=== PATIENT | female | born 1950 | race Caucasian/White ===

== ENCOUNTER → 2018-04-25 12:35 | Outpatient (CLI) | payer MEDICARE, OTHER, SELFPAY ==
[2018-04-25 14:04] LABS: Hematocrit 44.9 % (36-46); Mean Corpuscular HGB Conc 33.4 % (30-36); Mean Corpuscular Hemoglobin 30.9 PG (26-34); Mean Corpuscular Volume 92.5 fL (80-100); Platelet Count 272 X10^3/uL (150-400); Red Blood Cell Count 4.85 X10^6/uL (4.0-5.2); White Blood Cell Count 6.8 X10^3/uL (4.5-11.0)
[2018-04-25 14:18] LABS: Hemoglobin A1C% w Est Avg Glu 5.7 % (4.0-6.0)
[2018-04-25 14:21] LABS: Alanine Aminotransferase 25 IU/L (9-52); Albumin Globulin Ratio 1.6 (1.0-2.8); Alkaline Phosphatase 111 U/L (38-126); Aspartate Aminotransferase 28 IU/L (14-36); BUN Creatinine Ratio 31.4 (6-22); Bilirubin Total 0.6 mg/dL (0.2-1.3); Blood Urea Nitrogen 22 mg/dL (7-17); Calcium 9.3 mg/dL (8.4-10.2); Carbon Dioxide 29 mmol/L (22-32); Chloride 104 mmol/L (98-107); Cholesterol 232 mg/dL (140-199); Estimated Glomerular Filt Rate > 60.0 mL/min (>60); Globulin 2.5 g/dL (1.7-4.1); Glucose 101 mg/dL (80-110); HDL Cholesterol 43 mg/dL (40-60); HEMOLYSIS < 15 (0-50); LDL Cholesterol Calculated 150 mg/dL (<100); Potassium 4.6 mmol/L (3.4-5.1); Sodium 143 mmol/L (137-145); Total Protein 6.5 g/dL (6.3-8.2); Triglycerides 197 mg/dL (35-150)
[2018-04-25 14:36] LABS: Vitamin D 25 Hydroxy (D3) 21.6 ng/mL (30.0-100.0)
== END ==
PROVIDERS: PCP Student in an Organized Health Care Education/Training Program; Visit Provider Student in an Organized Health Care Education/Training Program
DX: Z00.00 Encounter for general adult medical examination without abnormal findings (principal); Z00.01 Encounter for general adult medical examination with abnormal findings; E66.01 Morbid (severe) obesity due to excess calories; Z68.41 Body mass index [BMI] 40.0-44.9, adult
CPT/HCPCS: 36415; 77080; 80053; 80061; 82306; 83036; 85027

== ENCOUNTER → 2018-10-16 15:54 | Outpatient (CLI) | payer MEDICARE, OTHER, SELFPAY ==
[2018-10-16 16:02] LABS: RBC Urine None Seen (0-5/HPF)
[2018-10-16 17:12] LABS: Appearance Urine UA CLEAR; Bilirubin Urine UA NEGATIVE (NEGATIVE); Color Urine UA YELLOW; Glucose Urine UA NEGATIVE (Negative); Ketones Urine UA NEGATIVE (NEGATIVE); Leukocyte Esterase Urine UA TRACE (NEGATIVE); Nitrite Urine UA NEGATIVE (Negative); Occult Blood Urine UA NEGATIVE (Negative); Protein Urine UA NEGATIVE (Negative); Specific Gravity Urine UA 1.025 (1.000-1.035); Urobilinogen Urine UA 0.2 E.U./dL (0.2)
[2018-10-16 17:31] LABS: Bacteria Urine Occasional (0-1); Squamous Epithelial Cell Urine 0-1 /HPF (0-5/HPF); WBC Urine 1-5/HPF (0-5/HPF)
[2018-10-16 17:32] LABS: Culture Indicated Urine Specimen Cultured
== END ==
PROVIDERS: PCP Student in an Organized Health Care Education/Training Program; Visit Provider Student in an Organized Health Care Education/Training Program
DX: R30.0 Dysuria (principal)
CPT/HCPCS: 81001; 87077; 87086; 87186

== ENCOUNTER → 2019-10-09 15:53 | Outpatient (CLI) | payer MEDICARE, OTHER, SELFPAY ==
[2019-10-09 17:49] LABS: Appearance Urine UA CLOUDY; Bilirubin Urine UA NEGATIVE (NEGATIVE); Color Urine UA YELLOW; Glucose Urine UA NEGATIVE (Negative); Ketones Urine UA NEGATIVE (NEGATIVE); Leukocyte Esterase Urine UA 3+ (NEGATIVE); Nitrite Urine UA POSITIVE (Negative); Occult Blood Urine UA 2+ (Negative); Protein Urine UA 1+ (Negative); Urobilinogen Urine UA 0.2 E.U./dL (0.2)
[2019-10-09 17:56] LABS: RBC Urine 10-30/HPF (0-5/HPF); WBC Urine >100/HPF (0-5/HPF)
[2019-10-09 17:57] LABS: Bacteria Urine Many (>30); Culture Indicated Urine Specimen Cultured; Mucus Urine 2+ (Negative); Renal Epithelial Cells Urine 1-5/HPF (0-1/HPF); Squamous Epithelial Cell Urine 1-5 /HPF (0-5/HPF); Transitional Epi Cells Urine 1-5/HPF (0-5/HPF)
== END ==
PROVIDERS: PCP Student in an Organized Health Care Education/Training Program; Referring Provider Student in an Organized Health Care Education/Training Program; Visit Provider Student in an Organized Health Care Education/Training Program
DX: R30.0 Dysuria (principal)
CPT/HCPCS: 81001; 87077; 87086; 87186

== ENCOUNTER → 2020-04-13 13:47 | Outpatient (CLI) | payer MEDICARE, OTHER, SELFPAY | PROVIDERS: PCP Student in an Organized Health Care Education/Training Program; Referring Provider Student in an Organized Health Care Education/Training Program; Visit Provider Student in an Organized Health Care Education/Training Program | DX: Z13.820 Encounter for screening for osteoporosis (principal); Z78.0 Asymptomatic menopausal state; Z82.62 Family history of osteoporosis | CPT/HCPCS: 77080 ==

== ENCOUNTER → 2020-04-19 12:17 | Outpatient (CLI) | payer MEDICARE, OTHER, SELFPAY ==
[2020-04-19 12:25] LABS: Bacteria Urine None Seen; RBC Urine None Seen (0-5/HPF)
[2020-04-19 13:00] LABS: BUN Creatinine Ratio 22.5 (6-22); Blood Urea Nitrogen 18 mg/dL (7-17); Calcium 9.3 mg/dL (8.4-10.2); Carbon Dioxide 26 mmol/L (22-32); Chloride 107 mmol/L (98-107); Estimated Glomerular Filt Rate > 60.0 mL/min (>60); Glucose 128 mg/dL (80-110); HEMOLYSIS < 15 (0-50); Potassium 4.2 mmol/L (3.4-5.1); Sodium 139 mmol/L (137-145)
[2020-04-19 15:46] LABS: Vitamin D 25 Hydroxy (D3) 24.7 ng/mL (30.0-100.0)
[2020-04-19 16:38] LABS: Appearance Urine UA CLEAR; Bilirubin Urine UA NEGATIVE (NEGATIVE); Color Urine UA YELLOW; Glucose Urine UA NEGATIVE (Negative); Ketones Urine UA NEGATIVE (NEGATIVE); Leukocyte Esterase Urine UA NEGATIVE (NEGATIVE); Nitrite Urine UA NEGATIVE (Negative); Occult Blood Urine UA NEGATIVE (Negative); Protein Urine UA NEGATIVE (Negative); Specific Gravity Urine UA 1.025 (1.000-1.035); Urobilinogen Urine UA 0.2 E.U./dL (0.2)
[2020-04-19 16:49] LABS: Culture Indicated Urine Cult Not Indicated; Mucus Urine 1+ (Negative); Squamous Epithelial Cell Urine 1-5 /HPF (0-5/HPF); WBC Urine 1-5/HPF (0-5/HPF)
== END ==
PROVIDERS: PCP Student in an Organized Health Care Education/Training Program; Referring Provider Student in an Organized Health Care Education/Training Program; Visit Provider Student in an Organized Health Care Education/Training Program
DX: R35.0 Frequency of micturition (principal); I10 Essential (primary) hypertension; E55.9 Vitamin D deficiency, unspecified
CPT/HCPCS: 36415; 80048; 81001; 82306

== ENCOUNTER → 2020-08-09 09:51 | Outpatient (CLI) | payer MEDICARE, OTHER, SELFPAY ==
[2020-08-09 11:39] LABS: COVID19 -Nasal RAPID Negative (Negative)
== END ==
PROVIDERS: PCP Student in an Organized Health Care Education/Training Program; Visit Provider Physician Assistant
DX: Z01.812 Encounter for preprocedural laboratory examination (principal); Z20.822 Contact with and (suspected) exposure to COVID-19
CPT/HCPCS: 87635; C9803

== ENCOUNTER 2020-08-11 08:18 | Day surgery (SDC) | payer MEDICARE, OTHER, SELFPAY ==
--- NOTE | 2020-08-10 17:18 | PM.PREOP ---
Pre-operative Note COVID-19 COVID-19 status: Negative Interval Note History & Physical reviewed/Exam performed by Physician: Yes Changes to H&P: No
--- NOTE | 2020-08-11 08:29 | P.OP_ITS ---
Operative Date/Time/Diagnoses Date of procedure: 08/11/20 Time of procedure: 09:45 Procedure & Clinicians Procedure: Preoperative diagnoses: 1. Left significant nuclear sclerotic and cortical cataract. 2. 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 3. Sleep apnea 4. Depression 5. Asthma 6. Hypertension 7. Left macular scar with a scotoma. Postoperative diagnoses: 1. Complex Cataract removed by phacoemulsification with placement of posterior chamber intraocular lens. Use of MiLoop and capsular tension ring Procedure:Complex Phacoemulsification with posterior chamber intraocular lens implant Surgeon: Maribeth Price MD Complications: Vitreous strand and zonular weakness 7 to 11 oclock. Limited vitrectomy performed. Specimen: None Implant: [id number]+24.0 Blood loss: None Anesthesia: Retrobulbar with monitored standby Description of procedure: Patient presents with a complaint of decreased vision due to cataract which is affecting activities of daily living. The patient wants surgery to improve vision. She has been undergoing frequent intravitreal injections for exudative macular degeneration in both eyes. This eye has been currently stable with injections and due to the advancing cataract she is unable to see for activities of both reading and distance. She would like to try to enhance her vision as much as possible. She had her last intravitreal injection on July 16 2020. She has no active fluid at this time but there is a chronic macular scar with a scotoma. This surgery is planned to coincide with the best time after her recent intravitreal injection for a lower risk of postoperative leakage. She does have increased risk of complications given the multiple intravitreal injection. She understands that macular degeneration will limit her best potential visual acuity and still have some visual distortion after cataract surgery. Extra risk during the COVID-19 epidemic so also discussed and she wishes to proceed. She has tested negative prior to the procedure. The patient was taken to the operating room and given IV sedation. A retrobulbar block consisting of 6 cc of 2% xylocaine without epinephrine mixed half and half with 0.5% Marcaine with 1 cc of hyaluronidase added is placed between the medial and lateral 1/3 of the inferior orbital rim. The eye is manually massaged for 30 sec, prepped using Betadine solution, and draped in the usual sterile fashion. Temporal approach was made, a 1 mm side-port incision was made 90? from the proposed clear corneal incision position. Phenylephrine 1.5% mixed with 1% xylocaine 0.2 cc was placed into the anterior chamber. Viscoat followed by Healon was then placed. A 2.6 mm clear incision with a 2.6 mm blade was placed. A 360 degree capsulorrhexis style capsulotomy was then performed with a cystitome needle on a Healon. There was a 1 mm area of endothelial decimated irritation at the 10 o'clock position which did not extend during the surgery. Hydrodelineation and hydrodissection were performed. The phacoemulsification unit is introduced, and sculpting was used to groove the central lens. It was much denser than originally perceived. I noted that there was weakness to the zonules immediately and the inferior 8-11 clock hours and immediately placed Viscoat viscoelastic without removing the instruments from the eye. To prevent any further need to groove a MiLloop was then opened and expect with an inspec [place], inserted under the capsulorrhexis place past midline and then placed into the central nucleus with the lens then dissected into 2 halves. Viscoelastic was replaced and the lens him a nuclear were then removed removed in chopping mode at the iris plane. To maintain capsule integrity a pre-loaded capsular tension ring of 12 mm was inspected. Retracted into its izaguirre and then opened into the posterior chamber and released. Epi nucleus is removed with epinuclear mode and irrigation aspiration was used to remove the peripheral cortex. There was a small strand of vitreous noted at the 6 o'clock position which was placed back into position using extra viscoelastic. Phone consultation did take place with Dr. Remi Marcus who said that to proceed with the current surgical plan. All nucleus and most cortex was removed. There was a small amount of cortex at the 8 o'clock position left into position for after the intra-ocular lens insertion. The capsulorrhexis and posterior capsule were both intact. The intraocular lens is selected, inspected, power confirmed, and placed in the posterior chamber and opened and it was well centered. Try essence a small amount was placed into the anterior chamber to check for vitreous. A dry vitrectomy was performed on the vitreous strand. A 10 0 nylon suture was placed through the wound and tied after viscoelastic was gently irrigated. It was difficult to bury the knot. The wound was tested for leaks, there was none and it was left sutured with only 1 stitch. Miostat was placed into the anterior chamber and the pupil was round. Was gently irrigated through the side port. Vigamox 0.1 cc was placed into the anterior chamber. A drop of antibiotic and was placed and the eye was patched and shielded. The patient was stable and returned to the recovery room in excellent condition. Patient tolerated the procedure very well. She will begin eyedrops this evening and postoperative consultation with Dr. Macrus will occur as needed. She understands that there may be need for further procedures. Dictated by: Maribeth Price MD Copy to: [facility] Same procedure as scheduled: No
[2020-08-11 08:45] VITALS: BP 133/69; PULSE 79; RESP 18; TEMP 36.6; O2SAT 95; BMI 44.8
[2020-08-11] MEDS: PROPARACAINE 0.5% OPHTH SOL 2 DROPS EYE-OP (08:56)
[2020-08-11] MEDS: CATARACT EYE COMPOUND (10 DROPS/SYRINGE) 3 DROPS EYE-OP (09:01)
[2020-08-11] MEDS: PHENYLEPHRINE/LIDOCAINE VIAL (OR) 0.2 ML EYE-OP (10:25)
[2020-08-11] MEDS: MOXIFLOXACIN INJ 5 MG/ML VIAL EYE-OP (10:25)
[2020-08-11] MEDS: HYALURONATE SODIUM 10 MG/ML SYRINGE INJ (10:26)
[2020-08-11] MEDS: CHONDROIDTIN/SOD HYALURONATE 1.05 ML SYRINGE INTRAOCULA (10:26)
[2020-08-11] MEDS: BALANCED SALT IRRIG SOLN NO.2 500 ML, EPINEPHrine 1 MG IRR (10:27)
[2020-08-11] MEDS: LIDOCAINE 2% 4 ML, BUPIVACAINE 0.5% (PF) 4 ML, HYALURONIDASE 150 UNIT INJ (10:27)
[2020-08-11] MEDS: ERYTHROMYCIN OPHTH 1 GM OINT 1 APPLIC EYE-LEFT (10:28)
[2020-08-11] MEDS: TRIAMCINOLONE (PF) 40 MG/ML VIAL IM (11:26)
[2020-08-11] MEDS: ACETYLCHOLINE 1:1000 OPHTH 2 ML 2 DROP INTRAOCULA (11:45)
[2020-08-11 11:59] VITALS: BP 144/77; PULSE 69; RESP 16; TEMP 36.7; O2SAT 97
[2020-08-11 12:19] VITALS: BP 132/74; PULSE 69; RESP 16; TEMP 36.7; O2SAT 98
--- NOTE | 2020-08-11 15:00 | SUR.PHASEII ---
Late entry: Pt ready to go, son called, pt dressed and left unit in stable condition.
== END 2020-08-11 12:30 | disposition home or self-care (01) ==
LOC: OR 08:22
PROVIDERS: PCP Student in an Organized Health Care Education/Training Program; Referring Provider Ophthalmology; Visit Provider Ophthalmology
PROC: (CPT 66982; principal; 2020-08-11 09:45)
DX: H25.812 Combined forms of age-related cataract, left eye (principal); H35.3230 Exudative age-related macular degeneration, bilateral, stage unspecified; H53.459 Other localized visual field defect, unspecified eye; G47.30 Sleep apnea, unspecified; F32.9 Major depressive disorder, single episode, unspecified; J45.909 Unspecified asthma, uncomplicated; I10 Essential (primary) hypertension
CPT/HCPCS: 66982; J0171; J3300; J3301; J3470

== ENCOUNTER → 2020-10-11 14:09 | Outpatient (CLI) | payer MEDICARE, OTHER, SELFPAY | PROVIDERS: PCP Student in an Organized Health Care Education/Training Program; Visit Provider Physician Assistant | DX: N30.01 Acute cystitis with hematuria (principal) | CPT/HCPCS: 87077; 87086; 87186 ==

== ENCOUNTER → 2020-10-25 14:02 | Outpatient (CLI) | payer MEDICARE, OTHER, SELFPAY ==
[2020-10-25 15:59] LABS: COVID19 -Nasal RAPID Negative (Negative)
== END ==
PROVIDERS: PCP Student in an Organized Health Care Education/Training Program; Visit Provider Student in an Organized Health Care Education/Training Program
DX: Z20.822 Contact with and (suspected) exposure to COVID-19 (principal)
CPT/HCPCS: 87635; C9803

== ENCOUNTER 2020-10-27 07:22 | Day surgery (SDC) | payer MEDICARE, OTHER, SELFPAY ==
--- NOTE | 2020-10-26 19:13 | PM.PREOP ---
Pre-operative Note COVID-19 COVID-19 status: Negative Interval Note History & Physical reviewed/Exam performed by Physician: Yes Changes to H&P: No
--- NOTE | 2020-10-27 07:30 | P.OP_ITS ---
Operative Date/Time/Diagnoses Date of procedure: 10/27/20 Time of procedure: 08:45 Procedure & Clinicians Procedure: Preoperative diagnoses: 1. Right cataract surgery possible with use of capsular dye. 2. Mature or advanced nuclear sclerotic and cortical cataract with poor visibility of the anterior capsule increasing surgical risks of complications. 3. Exudative macular degeneration with ongoing intravitreal injections. 4. Astigmatism which she elects to correct the toric intraocular lens. 5. Sleep apnea 6. Depression 7. Hypertension 8. Asthma Postoperative diagnoses: 1. Phacoemulsification with posterior chamber interocular lens toric implant. 2. Placement of a toric posterior chamber intraocular lens implant. Surgeon: Maribeth Price MD Complications: none Specimen: None Implant: [id number]+24.0 [place] 075. Blood loss: None Anesthesia: Retrobulbar with monitored standby. Description of procedure: Dictated by: Maribeth Price MD Post operative diagnoses: 1. Right cataract removed with phacoemulsification . 2. Placement of a toric posterior chamber intraocular lens. Procedure: Phacoemulsification with posterior chamber intraocular lens implant Surgeon: Maribeth Price MD Blood loss: None Anesthesia: Retrobulbar with monitored standby Description of procedure: Patient has presented with decreased vision due to cataract which is affecting activities of daily living both distance and near. She has high risk due to advanced cataract after intravitreal injections which can cause zonular instability. She has had cataract surgery in her left eye and zonular weakness was present The patient wants surgery to improve vision. She is stable having undergone a an intravitreal injection last few weeks and wishes to proceed with surgery at this time. She understands extra yes during the Covid 19 epidemic in his tested negative for active virus prior to the procedure. The patient was taken to the operating room and indelible ink peterson were placed at the 90 and 180 degree meridian after placing topical proparacaine. She was then placed on the operating room table and given IV sedation. A retrobulbar block consisting of 6 cc of 2% xylocaine without epinephrine mixed half and half with 0.5% Marcaine with 1 cc of hyaluronidase added is placed between the medial and lateral 1/3 of the inferior orbital rim. The eye is manually massaged for 30 sec, prepped using Betadine solution, and draped in the usual sterile fashion. Temporal approach was made, a 1 mm side-port incision was performed 90 degrees from the planned corneal wound. Phenylephrine 1.5% mixed with 1% xylocaine 0.2 cc was placed into the anterior chamber. No capsular dye was needed . ]Viscoat followed by Healon was then placed. A 2.6 mm clear incision with a 2.6 mm blade was placed. A 360 degree capsulorrhexis style capsulotomy was then performed with a cystitome needle on a Healon. Hydrodelineation and hydrodissection were performed. The phacoemulsification unit is introduced, and sculpting used to groove the central lens. It is then removed in chopping mode. Epi nucleus is removed with epinuclear mode and irrigation aspiration was used to remove the peripheral cortex. The posterior capsule is polished. The intraocular lens is selected, inspected, power confirmed, and placed in the posterior chamber at the desired meridian of 075?. All zonules held intact. The pupil was not constricted with Miostat. The wound was stromally hydrated and tested for leaks, there was none and was left sutureless. Vigamox 0.1 cc was placed into the anterior chamber. Kenalog 0.2 cc was placed in the superior subconjunctival space. A drop of antibiotic and was placed and the eye was patched and shielded. The patient was stable and returned to the recovery room in excellent condition. Dictated by: Maribeth Price MD Copy to: [facility] Same procedure as scheduled: Yes
[2020-10-27] MEDS: PROPARACAINE 0.5% OPHTH SOL 2 DROPS EYE-OP (08:04)
[2020-10-27] MEDS: CATARACT EYE COMPOUND (10 DROPS/SYRINGE) 3 DROPS EYE-OP (08:05)
[2020-10-27 08:11] VITALS: BP 111/65; PULSE 78; RESP 16; TEMP 37.2; O2SAT 95
[2020-10-27] MEDS: LIDOCAINE 2% 4 ML, BUPIVACAINE 0.5% (PF) 4 ML, HYALURONIDASE 150 UNIT INJ (09:16)
[2020-10-27] MEDS: TRIAMCINOLONE 50 MG/5 ML VIAL INJ (09:18)
[2020-10-27] MEDS: PHENYLEPHRINE/LIDOCAINE VIAL (OR) 0.2 ML EYE-OP (09:19)
[2020-10-27] MEDS: ERYTHROMYCIN OPHTH 1 GM OINT 1 APPLIC EYE-RIGHT (09:19)
[2020-10-27] MEDS: MOXIFLOXACIN INJ 4 MG/0.8 ML VIAL 0.5 MG EYE-OP (09:19)
[2020-10-27] MEDS: BALANCED SALT IRRIG SOLN NO.2 500 ML, EPINEPHrine 1 MG IRR (09:20)
[2020-10-27] MEDS: HYALURONATE SODIUM 10 MG/ML SYRINGE INJ (09:21)
[2020-10-27] MEDS: CHONDROIDTIN/SOD HYALURONATE 1.05 ML SYRINGE INTRAOCULA (09:21)
[2020-10-27 09:55] VITALS: BP 150/73; PULSE 64; RESP 16; TEMP 36.3; O2SAT 95
[2020-10-27 10:10] VITALS: BP 153/79; PULSE 74; RESP 15; O2SAT 94
--- NOTE | 2020-10-27 10:25 | SUR.PHASEII ---
1010 late entry ambulated to the bathroom to dress, stable on feet. Voided. Surgical site cdi
== END 2020-10-27 10:12 | disposition home or self-care (01) ==
LOC: OR 07:24
PROVIDERS: PCP Student in an Organized Health Care Education/Training Program; Referring Provider Student in an Organized Health Care Education/Training Program; Visit Provider Ophthalmology
PROC: (CPT 66984; principal; 2020-10-27 08:45)
DX: H25.811 Combined forms of age-related cataract, right eye (principal); H35.3231 Exudative age-related macular degeneration, bilateral, with active choroidal neovascularization; I10 Essential (primary) hypertension; J45.909 Unspecified asthma, uncomplicated; G47.33 Obstructive sleep apnea (adult) (pediatric); F32.9 Major depressive disorder, single episode, unspecified
CPT/HCPCS: 66984; J0171; J2704; J3301; J3470; V2787

== ENCOUNTER 2021-02-23 07:47 | Observation (INO) | payer MEDICARE, OTHER, SELFPAY ==
[2021-02-23] VITALS (22 sets, daily range): BP systolic 89–185; BP diastolic 46–101; PULSE 67–109; RESP 12–22; TEMP 35.9–36.6; O2SAT 89–100; BMI 43.9
--- NOTE | 2021-02-23 | PATH_ITS ---
[facility] Accession Number: [id number] . 01 Material submitted: . gallbladder - GALLBLADDER AND STONES . 02 Diagnosis: Gallbladder, Cholecystectomy: Chronic cholecystitis with cholelithiasis. Negative for dysplasia and malignancy. MRV 02/28/2021 1213 Local . 02 Electronically signed: . Ana Roman MD, Pathologist NPI- [id number] . 01 Gross description: . The specimen is received in formalin, labeled gallbladder and stone and consists of a 10.0 x 3.5 x 3.2 cm previously disrupted gallbladder with a 0.3 cm in diameter cystic duct. The serosa is levi-pink and smooth. Opening reveals minimal green viscous bile and multiple levi-green multifaceted choleliths and cholelith fragments ranging from 0.1-1.5 cm. The mucosa is levi-green and velvety to trabeculated, and the wall thickness measures 0.3 cm. Plaster Whittler sections are submitted, to include the en face cystic duct margin (blue), in cassette A1. (EA:[id number]) /MRV 02/25/2021 0954 Local . 02 Pathologist provided ICD-10: K80.60 . 02 CPT . 408565 Performed at: 01 [facility] [address], [place], [place] [id number] MD Jose G Landa MD Phone: [phone] Performed at: 02 [facility] [address] [place], [place] [id number] MD Ana Roman MD Phone: [phone]
--- NOTE | 2021-02-23 08:03 | ED_ITS ---
HPI - General Adult General Chief complaint: Abdominal Pain Stated complaint: severe right upper quad pain/n & v x1day Time Seen by Provider: 02/23/21 07:56 History of Present Illness HPI narrative: Patient is a 70-year-old female. Has known cholelithiasis. Has had off and on discomfort for the past several years. She stated that yesterday she ate some fried chicken and just prior to midnight last night started to have right upper quadrant abdominal pain. Some nausea but no vomiting. Has had some diarrhea. Has not tried anything for the symptoms. Feels just like her prior issues with gallbladder however it has persisted until this morning. No fevers. Has had a tubal ligation and a laparoscopy in the past. Also has a history of diverticulitis. No chest pain. No shortness of breath. Related Data Home Medications Medication Instructions Recorded Confirmed fluticasone propionate 50 1 spray INTRANASAL DAILY PRN 08/11/20 10/27/20 mcg/actuation nasal spray,suspension vit C 250 mg-vit E 90 mg-zinc 40 1 tab PO DAILY 08/11/20 10/27/20 mg-copper 1 [id number] capsule (PreserVision AREDS-2) Previous Rx's Medication Instructions Recorded albuterol sulfate 90 mcg/actuation 1 puff INHALATION Q4-6H PRN #18 06/26/19 aerosol inhaler gram naproxen 500 mg tablet 500 mg PO BID #180 tab 03/30/20 losartan 50 mg tablet 50 mg PO DAILY #90 tab 07/12/20 hydrochlorothiazide 12.5 mg tablet 12.5 mg PO DAILY #90 tab 07/16/20 fluticasone 250 mcg-salmeterol 50 1 inh INHALATION BID #60 each 09/20/20 mcg/dose blistr powdr for inhalation duloxetine 30 mg capsule,delayed 30 mg PO DAILY #90 cap 10/25/20 release (Cymbalta) zolpidem 5 mg tablet 5 mg PO BEDTIME PRN #10 tab 10/25/20 Allergies Allergy/AdvReac Type Severity Reaction Status Date / Time FLORINDA Inhibitors AdvReac Intermediate Cough Verified 02/23/21 11:04 Rpimuwz-Nsf-Ucd Reductase AdvReac Intermediate leg cramps Verified 02/23/21 11:04 Inhibitor Iodinated Contrast Media AdvReac Mild hay fever Verified 02/23/21 11:04 type symptoms Review of Systems Constitutional Constitutional: Denies fever(s) Cardiovascular Cardiovascular: Reports as per HPI Respiratory Respiratory: Reports system reviewed and no additional complaints, except as documented Gastrointestinal Gastrointestinal: Reports as per HPI Genitourinary Genitourinary: Reports system reviewed and no additional complaints, except as documented Musculoskeletal Musculoskeletal: Reports system reviewed and no additional complaints, except as documented Integumentary/Breasts Skin/Breast: Reports system reviewed and no additional complaints, except as documented Neurologic Neurologic: Reports system reviewed and no additional complaints, except as documented Hematologic/Lymphatic On Anticoagulants: No Allergic/Immunologic Allergic/Immunologic: Reports system reviewed and no additional complaints, except as documented Patient History Medical History Asthma 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 Chickenpox Chronic back pain Chronic cough Depression Fibroids (~2001) Fractures Gall stones (~2017) HTN (hypertension) (~2003) Hyperlipidemia Measles MRSA carrier Mumps Osteoarthritis Osteopenia Rubella UTI (urinary tract infection) Surgical History (Updated 04/15/18 @ 16:01 by Kassandra Marte) H/O bilateral breast reduction surgery H/O bilateral hip replacements History of bilateral knee replacement History of replacement of both shoulder joints Family History (Updated 04/15/18 @ 16:08 by Kassandra Marte) Father Hyperlipidemia Hypertension Stroke Mother Cancer Diabetes mellitus Hyperlipidemia Hypertension Depression Heart disease Brother No problems noted. Brother No problems noted. Sister Hypertension Sister Diabetes mellitus Cancer Sister No problems noted. Sister Cancer Sister No problems noted. Sister No problems noted. Sister No problems noted. Social History household members: family Smoking Status: Never smoker alcohol intake: current substance use type: does not use Smoking Status: Never smoker alcohol intake frequency: a few times a month Substance Use Type: does not use and other Exam Initial Vital Signs Initial Vital Signs: Vital Signs Temperature 97.1 F L 02/23/21 07:56 Pulse Rate 82 02/23/21 07:56 Respiratory Rate 16 02/23/21 07:56 Blood Pressure 185/82 H 02/23/21 07:56 Pulse Oximetry 99 02/23/21 07:56 Const General: cooperative and comfortable HENMT Head: normal to inspection and normocephalic Resp Effort & Inspection: normal respiratory effort Cardio Rate: regular rate GI Inspection: non-distended Palpation: soft, No guarding and tender (Right upper quadrant) Back/Spine/Pelvis Back: No CVA tenderness Skin General: no rashes or lesions noted Neuro General: patient alert, patient awake and moves all extremities Extrem General: normal to inspection and capillary refill normal Psych Appearance: grossly normal and well kempt Scores GCS [place] coma scale eye opening: Spontaneous [place] coma scale verbal response: Orientated Laurie coma scale motor response: Obey commands [place] coma scale total score: 15 Course Orders Ordered: ED Orders 02/23/21 08:03 US abdomen limited Stat EKG-12 Lead Stat 02/23/21 08:15 Complete Blood Count AUTO DIFF Stat Comprehensive Metabolic Panel Stat Lipase Stat 02/23/21 10:26 COVID19 - ADMIT (PICTURE COPYIST swab/PCR) Stat Sodium Chloride (Normal Saline 0.9%) 1,000 mls @ 125 mls/hr IV CONT DOTTIE Last Infusion: 02/23/21 11:07 Dose: 0 mls/hr Documented by: Admin: 02/23/21 08:18 Dose: 125 mls/hr Documented by: PALLAVI Discontinued Medications Ketorolac Tromethamine (Ketorolac 30 Mg/Ml Vial) 30 mg IV NOW ONE Stop: 02/23/21 08:02 Last Admin: 02/23/21 08:18 Dose: 30 mg Documented by: PALLAVI Ondansetron HCl (Ondansetron 4 Mg/2 Ml Inj) 4 mg IV NOW ONE Stop: 02/23/21 08:02 Last Admin: 02/23/21 08:18 Dose: 4 mg Documented by: PALLAVI Vital Signs Vital signs: Vital Signs - 8 hr 02/23/21 07:56 02/23/21 07:57 02/23/21 08:00 Temperature 97.1 F L Pulse Rate 82 76 77 Respiratory Rate 16 Blood Pressure 185/82 H Pulse Oximetry 99 94 96 02/23/21 08:30 02/23/21 09:00 02/23/21 09:30 Temperature Pulse Rate 75 76 74 Respiratory Rate Blood Pressure Pulse Oximetry 96 97 98 02/23/21 09:56 02/23/21 10:00 02/23/21 10:05 Temperature Pulse Rate 85 79 77 Respiratory Rate 18 Blood Pressure 185/82 H Pulse Oximetry 92 94 95 02/23/21 10:06 Temperature Pulse Rate Respiratory Rate Blood Pressure 182/73 H Pulse Oximetry Medical Decision Making Medical Records Medical records reviewed: Yes I reviewed the patient's medical records. Lab Data Lab results reviewed: Yes I reviewed the patient's lab results. Result diagrams: 02/23/21 08:15 02/23/21 08:15 Labs: Lab Results 02/23/21 02/23/21 02/23/21 Range/Units 08:15 08:15 10:26 WBC 8.9 (4.5-11.0) X10^3/uL RBC 4.68 (4.0-5.2) X10^6/uL Hgb 14.5 (12.0-16.0) g/dL Hct 43.7 (36-46) % MCV 93.4 (80-100) fL MCH 30.9 (26-34) PG MCHC 33.0 (30-36) % RDW 13.6 (11.6-14.8) % Plt Count 252 (150-400) X10^3/uL Neut % (Auto) 80.3 H (50-75) % Lymph % (Auto) 10.6 L (25-40) % [place] % (Auto) 7.3 (3-14) % Eos % (Auto) 1.6 L (2-4) % Baso % (Auto) 0.2 (0-2) % Neut # (Auto) 7200 H (2954-9061) /uL Lymph # (Auto) 1000 L (5453-9807) /uL [place] # (Auto) 700 (0-900) /uL Eos # (Auto) 100 (0-450) /uL Baso # (Auto) 0 (0-100) /uL Sodium 140 (137-145) mmol/L Potassium 3.9 (3.4-5.1) mmol/L Chloride 105 (98-107) mmol/L Carbon Dioxide 30 (22-32) mmol/L BUN 32 H (7-17) mg/dL Creatinine 0.88 (0.52-1.04) mg/dL Estimated GFR > 60.0 (>60) mL/min BUN/Creatinine Ratio 36.4 H (6-22) Glucose 156 H (80-110) mg/dL Calcium 9.7 (8.4-10.2) mg/dL Total Bilirubin 0.4 (0.2-1.3) mg/dL AST 24 (14-36) IU/L ALT 19 (<35) IU/L Alkaline Phosphatase 98 (38-126) U/L Total Protein 6.9 (6.3-8.2) g/dL Albumin 4.0 (3.5-5.0) g/dL Globulin 2.9 (1.7-4.1) g/dL Albumin/Globulin Ratio 1.4 (1.0-2.8) Lipase 17 L (23-300) U/L SARS-CoV-2 (PCR) Negative (Negative) Imaging Data US - abdomen: Radiologist's Impression: [address] [id number] ReportSigned Patient: Raúl Taylor EMR#: [id number]: [id number]:[id number]/Sex: 70 / FDate of Service: 02/23/21Loc: EDAccession Number: [id number] Procedure: US abdomen limited Ordering Provider: Carroll Strong D.O. PROCEDURE: US ABDOMEN LIMITED INDICATIONS: RUQ PAIN TECHNIQUE: Real-time focused scanning was performed of the abdomen, with image documentation. COMPARISON: None. FINDINGS: The liver is slightly enlarged at 20.1 cm craniocaudad and is incre ased in echotexture consistent with diffuse fatty infiltration. The gallbladder contains stones, nearly stone-filled, with gallbladder wall thickening up to 4.9 mm but no adjacent free fluid. Tenderness during sonographic palpation of the gallbladder is present. The common bile duct is normal in caliber at 5.1 mm. No pancreatic abnormality is seen. IMPRESSION: Stone filled gallbladder, abnormally wall thickened with focal tenderness during sonographic palpation. Early acute cholecystitis likely is present. Biliary distension is not currently seen. Dictated by: Ace Sesay M.D. on 02/23/2021 at 9:47 Approved by: Ace Sesay M.D. on 02/23/2021 at 9:49 ECG Data Attestation: I personally reviewed and interpreted this ECG as follows: Interpretation: Sinus rhythm Ventricular rate is 71 Normal axis Normal QRS Normal QTC No ST T wave changes MDM Narrative Medical decision making narrative: Patient has normal LFTs and lipase. Does have right upper quadrant pain. Does have cholelithiasis with findings consistent with acute cholecystitis. Pain is somewhat improved with Toradol. I do suspect that this is the cause of her symptoms. Discussed the case with Dr. Gurrola on-call for General surgery who will admit for further evaluation and treatment. I did discuss this with the patient as well. She expressed understanding. Discharge Plan Departure Patient Disposition: Admitted as Observation Clinical Impression: Acute cholecystitis Admit Date/Time: 02/23/21 10:53 Admit Provider: Javy Gurrola
[2021-02-23] MEDS: KETOROLAC 30 MG/ML VIAL IV (08:18)
[2021-02-23] MEDS: SODIUM CHLORIDE 0.9% 1,000 ML 125 ML IV (08:18)
[2021-02-23] MEDS: ONDANSETRON 4 MG/2 ML INJ IV ×2 (08:18→22:17)
[2021-02-23 08:25] LABS: Add Manual Diff / Slide Review NO; Basophils Absolute Auto 0 /uL (0-100); Basophils Percent Auto 0.2 % (0-2); Eosinophils Absolute Auto 100 /uL (0-450); Eosinophils Percent Auto 1.6 % (2-4); Hematocrit 43.7 % (36-46); Hemoglobin 14.5 g/dL (12.0-16.0); Lymphocytes Absolute Auto 1000 /uL (1100-4500); Lymphocytes Percent Auto 10.6 % (25-40); Mean Corpuscular Hemoglobin 30.9 PG (26-34); Mean Corpuscular Volume 93.4 fL (80-100); Monocytes Absolute Auto 700 /uL (0-900); Monocytes Percent Auto 7.3 % (3-14); Neutrophils Absolute Auto 7200 /uL (1500-7000); Neutrophils Percent Auto 80.3 % (50-75); Platelet Count 252 X10^3/uL (150-400); Red Blood Cell Count 4.68 X10^6/uL (4.0-5.2); Red Cell Distribution Width 13.6 % (11.6-14.8); White Blood Cell Count 8.9 X10^3/uL (4.5-11.0)
[2021-02-23 08:34] LABS: Alanine Aminotransferase 19 IU/L (<35); Albumin Globulin Ratio 1.4 (1.0-2.8); Alkaline Phosphatase 98 U/L (38-126); Aspartate Aminotransferase 24 IU/L (14-36); BUN Creatinine Ratio 36.4 (6-22); Bilirubin Total 0.4 mg/dL (0.2-1.3); Blood Urea Nitrogen 32 mg/dL (7-17); Calcium 9.7 mg/dL (8.4-10.2); Carbon Dioxide 30 mmol/L (22-32); Chloride 105 mmol/L (98-107); Estimated Glomerular Filt Rate > 60.0 mL/min (>60); Globulin 2.9 g/dL (1.7-4.1); Glucose 156 mg/dL (80-110); HEMOLYSIS < 15 (0-50); Lipase 17 U/L (23-300); Potassium 3.9 mmol/L (3.4-5.1); Sodium 140 mmol/L (137-145); Total Protein 6.9 g/dL (6.3-8.2)
[2021-02-23 11:34] LABS: COVID19 - ADMIT (NP swab/PCR) Negative (Negative)
[2021-02-23] MEDS: LACTATED RINGERS 1,000 ML 125 ML IV (11:57)
[2021-02-23 12:12] LABS: RBC Urine 0-1/HPF (0-5/HPF); WBC Urine 1-5/HPF (0-5/HPF)
[2021-02-23 12:13] LABS: Bacteria Urine Many (>30); Squamous Epithelial Cell Urine 0-1 /HPF (0-5/HPF)
[2021-02-23] MEDS: ENOXAPARIN 40 MG/0.4 ML SYRINGE SUBCUT (14:03)
--- NOTE | 2021-02-23 14:31 | PM.HP.1 ---
History of Present Illness History of Present Illness Date Patient Seen: 02/23/21 Time Patient Seen: 14:32 Date of Onset of Symptoms: 02/23/21 Chief complaint: severe right upper quad pain/n & v x1day Narrative: Around midnight patient developed severe right upper quadrant pain. She has had this in the past but never this severe. About 5 years ago she had a study that showed gallstones. No history of jaundice. Anorexic. Last p.o. was early this morning about 1:00 a.m. only abdominal operation was laparoscopy for what sounds like diverticulitis. She did not have a resection.. Patient History Medical History Asthma 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 Chickenpox Chronic back pain Chronic cough Depression Fibroids (~2001) Fractures Gall stones (~2017) HTN (hypertension) (~2003) Hyperlipidemia Measles MRSA carrier Mumps Osteoarthritis Osteopenia Rubella UTI (urinary tract infection) Surgical History H/O bilateral breast reduction surgery H/O bilateral hip replacements History of bilateral knee replacement History of replacement of both shoulder joints Family & Social History Family History Father Hyperlipidemia Hypertension Stroke Mother Cancer Diabetes mellitus Hyperlipidemia Hypertension Depression Heart disease Brother No problems noted. Brother No problems noted. Sister Hypertension Sister Diabetes mellitus Cancer Sister No problems noted. Sister Cancer Sister No problems noted. Sister No problems noted. Sister No problems noted. Social History: household members family Safety & Behavioral: Feels Safe in Current Yes Environment Been Physically Hurt or No Threatened By a Person Tobacco & Substance use: Smoking Status Never smoker alcohol intake current alcohol intake frequency a few times a month Substance Use Type other,does not use Meds Home Medications and Allergies Home Medications Medication Instructions Recorded Confirmed Type albuterol sulfate 90 mcg/actuation 1 puff INHALATION Q4-6H PRN #18 06/26/19 02/23/21 Rx aerosol inhaler gram naproxen 500 mg tablet 500 mg PO BID #180 tab 03/30/20 02/23/21 Rx losartan 50 mg tablet 50 mg PO DAILY #90 tab 07/12/20 02/23/21 Rx hydrochlorothiazide 12.5 mg tablet 12.5 mg PO DAILY #90 tab 07/16/20 02/23/21 Rx fluticasone propionate 50 1 spray INTRANASAL DAILY PRN 08/11/20 02/23/21 History mcg/actuation nasal spray,suspension vit C 250 mg-vit E 90 mg-zinc 40 1 tab PO DAILY 08/11/20 02/23/21 History mg-copper 1 [id number] capsule (PreserVision AREDS-2) fluticasone 250 mcg-salmeterol 50 1 inh INHALATION BID #60 each 09/20/20 02/23/21 Rx mcg/dose blistr powdr for inhalation duloxetine 30 mg capsule,delayed 30 mg PO DAILY #90 cap 10/25/20 02/23/21 Rx release (Cymbalta) zolpidem 5 mg tablet 5 mg PO BEDTIME PRN #10 tab 10/25/20 02/23/21 Rx Allergies Allergy/AdvReac Type Severity Reaction Status Date / Time FLORINDA Inhibitors AdvReac Intermediate Cough Verified 02/23/21 11:04 Tpwtlyp-Scr-Pij Reductase AdvReac Intermediate leg cramps Verified 02/23/21 11:04 Inhibitor Iodinated Contrast Media AdvReac Mild hay fever Verified 02/23/21 11:04 type symptoms Review of Systems Review of Systems Narrative: 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 No double vision or pain arise. No earache sore throats no tooth aches. No cough or cold. She suffers from asthma and has never smoked. She uses inhalers for. Patient denies any heart problems any shortness of breath is related to her asthma. No cough or sputum production at this time. No black or bloody bowel movements. She had a colonoscopy after hurt attack of diverticulitis and that was in 2016 and she was told it was clear. No blood in her urine or kidney stones that she does get frequent UTIs. Multiple surgeries on both knees hips and shoulders. No seizures or blackouts Exam Vital Signs (past 8 hours): - 02/23/21 07:56 02/23/21 07:57 02/23/21 08:00 Temperature 97.1 F L Pulse Rate 82 76 77 Respiratory Rate 16 Blood Pressure 185/82 H Pulse Oximetry 99 94 96 02/23/21 08:30 02/23/21 09:00 02/23/21 09:30 Temperature Pulse Rate 75 76 74 Respiratory Rate Blood Pressure Pulse Oximetry 96 97 98 02/23/21 09:56 02/23/21 10:00 02/23/21 10:05 Temperature Pulse Rate 85 79 77 Respiratory Rate 18 Blood Pressure 185/82 H Pulse Oximetry 92 94 95 02/23/21 10:06 Temperature Pulse Rate Respiratory Rate Blood Pressure 182/73 H Pulse Oximetry Oxygen Delivery Method Room Air Narrative Exam Narrative: Very pleasant cooperative woman in no apparent distress at this time. Her pain has subsided. Eyes are nonicteric. Lungs are clear to auscultation no rales or rhonchi. Harsh breath sounds however. Heart regular rate and rhythm without murmur gallop. Abdomen is protuberant soft. Scars from her laparoscopy or barely visible. There are no hernias appreciated on her abdominal wall. No tenderness at this time. Liver and spleen are not obviously enlarged. No palpable masses and no guarding. Speech rate and content are appropriate. Affect is appropriate. Objective Labs Result Diagrams: 02/23/21 08:15 02/23/21 08:15 Labs: Laboratory Results - last 24 hr 02/23/21 02/23/21 02/23/21 08:15 08:15 10:26 WBC 8.9 RBC 4.68 Hgb 14.5 Hct 43.7 MCV 93.4 MCH 30.9 MCHC 33.0 RDW 13.6 Plt Count 252 Neut % (Auto) 80.3 H Lymph % (Auto) 10.6 L [place] % (Auto) 7.3 Eos % (Auto) 1.6 L Baso % (Auto) 0.2 Neut # (Auto) 7200 H Lymph # (Auto) 1000 L [place] # (Auto) 700 Eos # (Auto) 100 Baso # (Auto) 0 Sodium 140 Potassium 3.9 Chloride 105 Carbon Dioxide 30 BUN 32 H Creatinine 0.88 Estimated GFR > 60.0 BUN/Creatinine Ratio 36.4 H Glucose 156 H Calcium 9.7 Total Bilirubin 0.4 AST 24 ALT 19 Alkaline Phosphatase 98 Total Protein 6.9 Albumin 4.0 Globulin 2.9 Albumin/Globulin Ratio 1.4 Lipase 17 L Urine RBC Urine WBC Ur Squamous Epith Cells Urine Bacteria Ur Culture Indicated? SARS-CoV-2 (PCR) Negative 02/23/21 11:31 WBC RBC Hgb Hct MCV MCH MCHC RDW Plt Count Neut % (Auto) Lymph % (Auto) [place] % (Auto) Eos % (Auto) Baso % (Auto) Neut # (Auto) Lymph # (Auto) [place] # (Auto) Eos # (Auto) Baso # (Auto) Sodium Potassium Chloride Carbon Dioxide BUN Creatinine Estimated GFR BUN/Creatinine Ratio Glucose Calcium Total Bilirubin AST ALT Alkaline Phosphatase Total Protein Albumin Globulin Albumin/Globulin Ratio Lipase Urine RBC 0-1/hpf Urine WBC 1-5/hpf Ur Squamous Epith Cells 0-1 /hpf Urine Bacteria Many (>30) H Ur Culture Indicated? Culture not indicate SARS-CoV-2 (PCR) Assessment & Plan Assessment and plan (1) Acute cholecystitis: Status: Acute (2) Hypertension: Qualifiers: Hypertension type: essential hypertension Qualified Code(s): I10 - Essential (primary) hypertension Status: Chronic (3) Morbid obesity: Status: Chronic Assessment & Plan narrative: Patient with cholelithiasis and abdominal pain. Liver function tests and labs are within normal limits. Ultrasound shows stones without ductal dilatation. Recommend laparoscopic cholecystectomy. Possible cholangiogram also. I have discussed the operation with the patient. Risks of bleeding, infection, injury to internal organs or ducts which would require major operation to repair, bile leakage postop, and hernia formation were all discussed with her. She appears to understand wishes to proceed. Due to her weight, this operation will probably be much more difficult than normal. May also influence her recovery.
--- NOTE | 2021-02-23 14:41 | PM.PREOP ---
Pre-operative Note COVID-19 COVID-19 status: Negative Result date/Date tested (Pos, Neg/Pending): 02/23/21 Interval Note History & Physical reviewed/Exam performed by Physician: Yes Changes to H&P: No
--- NOTE | 2021-02-23 17:33 | PC.NURSE ---
Pt is awake, alert and oriented x 3. Denies any nausea at this time. c/o minimal abdominal pain at this time. Rates it a 1 on pain scale. IV left upper forearm is patent with IV fluids infusing without difficulty. Call light within reach, encouraged pt to use call light. Pt to go to surgery soon for lap chris. She is NPO.
[2021-02-23] MEDS: LACTATED RINGERS 1,000 ML 42 ML IV ×2 (19:54→21:16)
[2021-02-23] MEDS: CEFAZOLIN 1 GM VIAL 2 GM IV (20:15)
--- NOTE | 2021-02-23 20:27 | SUR.OPER ---
Supine on padded OR bed, head on pillow, safety belt at thigh, Bilateral arms secured on padded arm board <90 degrees abduction. Legs uncrossed. Padded footboard in place. Tape over blanket to secure lower legs.
[2021-02-23] MEDS: BUPIVACAINE 0.5% (PF) VIAL 30 ML INJ (20:35)
[2021-02-23] MEDS: ALBUTEROL 2.5 MG/3 ML NEB (ADULT) INH (22:00)
--- NOTE | 2021-02-23 22:04 | P.OP_ITS ---
Operative Date/Time/Diagnoses Date of procedure: 02/23/21 Time of procedure: 22:04 Pre-op diagnosis: Chronic cholecystitis with cholelithiasis Post-op diagnosis: same (Acute and chronic cholecystitis with cholelithiasis) Procedure & Clinicians Procedure: Laparoscopic cholecystectomy Same procedure as scheduled: Yes Indications: Patient with severe right upper quadrant pain and gallstones taken to the operating room for removal of her gallbladder. She has had 5 years of symptoms intermittently Surgeon: Javy Gurrola Click Yes if Unassisted: Yes Anesthesia Type: General Operative Notes Findings: Markedly thickened and edematous gallbladder wall. Multiple large stones within the gallbladder. Closure Type: primary Specimen(s): other (Gallbladder and stones) Prosthetic devices, grafts, tissues, transplants, or devices: None Estimated Blood Loss (mL): 30 Blood products transfused: none Procedure in detail: The patient was placed supine on the operating room table and underwent general endotracheal anesthesia. The patient was prepped and draped in the usual fashion. Local anesthetic was infiltrated above the umbilicus and linear incision made and carried down through fascia into the peritoneal cavity. Stay sutures of 0 Vicryl were placed in the fascia. A 12 mm port was placed. The abdomen was insufflated. The patient was repositioned. Local anesthetic was infiltrated in 3 areas under the right costal margin and 3 small incisions made followed by placing 3 5 mm ports under direct laparoscopic camera vision internally. The gallbladder was identified as a markedly edematous thickened structure. Needle was inserted I aspirated about 25 cc of dark green fluid in order to soften the wall of the gallbladder severe it could be grasped. The gallbladder was Grasped and elevated. Dissection was begun near its end. A ductal structure that was quite narrow singular nature going directly to the gallbladder was identified and from surrounding structures. Three clips were placed across it was divided leaving 2 in the patient. In a similar fashion a an avascular structure which appeared to be the artery was identified clipped and divided. Once divided the and appeared to pulsate confirming its arterial nature.. The gallbladder was then dissected from its bed in the liver using cautery. This was a very tedious process due to the amount of fluid/edema in the wall of the gallbladder. It was detached, placed in a bag and removed through the umbilical port. I re-examined the right upper quadrant and spent some time controlling bleeding from the gallbladder be d. This was meticulously accomplished. I irrigated and suctioned the fluid from the right upper quadrant re-examined the gallbladder bed and it appeared to be dry. Each of the ports were removed. The port sites were all irrigated. The stay sutures in the incision above the umbilicus were elevated. A 2 0 PDS suture was placed between them. The Vicryl and PDS sutures were then tied. The subQ at the supraumbilical incision was closed with 4-0 Vicryl. The skin in all areas was closed with interrupted 4 0 Vicryl subcuticular stitches. Steri- Strips and Mastisol were applied. Band-Aids were placed and the patient was awakened, extubated and taken to the recovery area in good condition. Complications: none Post-operative Condition: stable Disposition: PACU
[2021-02-23] MEDS: PROCHLORPERAZINE 10 MG/2 ML VIAL IV (22:45)
--- NOTE | 2021-02-23 22:47 | SUR.PHASEI ---
Ondina Gurrola and Keo departed, called night pharmacy to clarify heart rate prior to giving compazine. Medication diluted and being given slow IV as directed by the pharmacist. States that her pain is just minimal.
--- NOTE | 2021-02-23 23:04 | SUR.PHASEI ---
states that her nausea is improved, resting on her back,, resp even and regular, eyes closed, no grimace.
--- NOTE | 2021-02-23 23:24 | SUR.PHASEI ---
221 patient lying on left side, states that she feels nauseated. Rx per Dr. Crowley. No wretching or emesis. No abdominal pain 2244 Nausea unimproved. Rx given per Dr. Gurrola.
--- NOTE | 2021-02-23 23:26 | SUR.PHASEI ---
2300 States that nausea is improved, not completely resolved. Tolerating pain - caffeine headache 2/10, abdomen 3/10. Discussed transferring her back to her room 230 To room 202, bed down and locked, call light within reach. Report given onsite with going and oncoming staff. Patient repositioned for body mechanics. SCDs on, O2 on at 3LNP (was transported on O2). Patient oriented and appropriately responsive. 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 No questions from staff or patient upon departure.
--- NOTE | 2021-02-23 23:33 | SUR.PHASEI ---
attempted new IV start in PACU for patient convenience and IV flow. X1 in RFA by JESÚS Ortiz - site bruised. Attempted in R hand by Dr. Gurrola. Anesthesia decided that we should manage to work with LAC site as possible since the patient will not likely have the IV for an extended period of time.
[2021-02-24 00:05] VITALS: BP 111/63; PULSE 89; RESP 16; TEMP 36.5; O2SAT 95
[2021-02-24 00:37] VITALS: BP 128/66; PULSE 93; RESP 16; TEMP 36.3; O2SAT 97
--- NOTE | 2021-02-24 01:15 | PC.NURSE ---
At 2330 pt arrives to floor from PACU. This Rn received reports from PEDIATRIC IMMUNOLOGIST. Surgery was uneventful and pt was given am albuterol neb treatment for wheezing. Pt's lungs are clear upon arrival and she is A&Ox4. Pt is on 2L NC. Pt denies pain, nausea. The four laproscopic surgical sites are clean and dressed. Pt falls asleep soon after assessment.
[2021-02-24 01:37] VITALS: BP 127/67; PULSE 98; RESP 16; TEMP 36.5; O2SAT 95
[2021-02-24 02:35] VITALS: BP 116/62; PULSE 90; RESP 16; TEMP 36.3; O2SAT 95
[2021-02-24 06:16] VITALS: BP 119/53; PULSE 83; RESP 16; TEMP 36.3; O2SAT 97
[2021-02-24 06:35] LABS: Add Manual Diff / Slide Review NO; Basophils Absolute Auto 0 /uL (0-100); Basophils Percent Auto 0.1 % (0-2); Eosinophils Absolute Auto 0 /uL (0-450); Hematocrit 40.8 % (36-46); Hemoglobin 13.6 g/dL (12.0-16.0); Lymphocytes Absolute Auto 300 /uL (1100-4500); Lymphocytes Percent Auto 3.8 % (25-40); Mean Corpuscular HGB Conc 33.2 % (30-36); Mean Corpuscular Hemoglobin 31.2 PG (26-34); Mean Corpuscular Volume 93.9 fL (80-100); Monocytes Absolute Auto 300 /uL (0-900); Monocytes Percent Auto 3.6 % (3-14); Neutrophils Absolute Auto 8500 /uL (1500-7000); Neutrophils Percent Auto 92.5 % (50-75); Platelet Count 238 X10^3/uL (150-400); Red Blood Cell Count 4.35 X10^6/uL (4.0-5.2); Red Cell Distribution Width 14.1 % (11.6-14.8); White Blood Cell Count 9.2 X10^3/uL (4.5-11.0)
[2021-02-24 06:52] LABS: Albumin 3.5 g/dL (3.5-5.0); Albumin Globulin Ratio 1.3 (1.0-2.8); Alkaline Phosphatase 74 U/L (38-126); Aspartate Aminotransferase 69 IU/L (14-36); BUN Creatinine Ratio 24.7 (6-22); Bilirubin Total 0.3 mg/dL (0.2-1.3); Blood Urea Nitrogen 19 mg/dL (7-17); Calcium 8.7 mg/dL (8.4-10.2); Carbon Dioxide 21 mmol/L (22-32); Chloride 108 mmol/L (98-107); Estimated Glomerular Filt Rate > 60.0 mL/min (>60); Globulin 2.6 g/dL (1.7-4.1); Glucose 198 mg/dL (80-110); HEMOLYSIS < 15 (0-50); Magnesium 1.7 mg/dL (1.6-2.3); Potassium 4.3 mmol/L (3.4-5.1); Sodium 140 mmol/L (137-145); Total Protein 6.1 g/dL (6.3-8.2)
[2021-02-24 06:59] LABS: Alanine Aminotransferase 44 IU/L (<35)
[2021-02-24 07:55] VITALS: BP 122/63; PULSE 89; RESP 16; TEMP 36.6; O2SAT 96
--- NOTE | 2021-02-24 08:45 | CM.DANOTE ---
DCP: Case received, EMR reviewed and met with patient. Introduced self and role. Was able to obtain information regarding patient's baseline activity status prior to surgery, as well as her current living situation. DCP assessment completed with information currently available. Patient is a 70 year old female who admitted yesterday morning to the care of the hospitalist/surgical tea. PCP: Dr. Ibarra/Will be changing to Dr. Franks Payer: confirmed: Medicare/[facility]. Patient came to the hospital via private vehicle secondary to having abdominal pain. Patient was diagnosed with acute cholecystitis. She had a laparoscopic cholecystectomy yesterday pm. Patient has history of diverticulitis as well. Met with patient in her room. She is alert and oriented, sitting up in her chair. Confirmed that she is independent at her baseline, and resides here in [place] with her son, Storm. Confirmed her primary care provider, but she indicated she is changing doctors next month, she wants someone with more experience. She will be seeing Dr. Franks. Confirmed that when she is ready for discharge, her son will pick her up. P: DCP to continue to follow. Patient should be able to go home when she is medically stable. Jodi Corey, RN/Electrical Electronics Engineer
[2021-02-24 09:12] LABS: Hemoglobin A1C% w Est Avg Glu 5.6 % (4.0-6.0)
[2021-02-24] MEDS: DULOXETINE 30 MG CAPSULE PO (10:14)
[2021-02-24] MEDS: GABAPENTIN 300 MG CAPSULE PO (10:14)
[2021-02-24] MEDS: LOSARTAN 50 MG TABLET PO (10:14)
[2021-02-24] MEDS: hydroCHLOROthiazide 25 MG TABLET 12.5 MG PO (10:14)
--- NOTE | 2021-02-24 13:23 | PC.NURSE ---
Discharge instructions reviewed with patient, and she states understanding and has no further questions or concerns at this time. IV dc'd intact. Patient to have follow up appointment with Dr. Gurrola and Dr. Ibarra PCP within next 1-2 weeks. Both offices called and left messages to arrange follow up but no return phone call with dates at this time, patient is aware and will follow up if she does not hear from them.
--- NOTE | 2021-02-26 14:14 | P.DS_ITS ---
History of Present Illness History of Present Illness Chief complaint: severe right upper quad pain/n & v x1day Narrative: Around midnight patient developed severe right upper quadrant pain. She has had this in the past but never this severe. About 5 years ago she had a study that showed gallstones. No history of jaundice. Anorexic. Last p.o. was early this morning about 1:00 a.m. only abdominal operation was laparoscopy for what sounds like diverticulitis. She did not have a resection.. Discharge Providers Provider Date of admission: 02/23/21 10:53 Discharge Date: 02/24/21 Primary care physician: Ben Ibarra MD Consults: 02/24/21 01:13 Consult to Respiratory Therapy Evaluate & Treat Comment: Physician Instructions: Evaluate and treat Discharge provider: Javy Gurrola MD Summary Hospital Course Discharge Diagnosis: Acute and chronic cholecystitis with cholelithiasis Chronic asthma Chronic hypertension Morbid obesity with a BMI of 44 Hospital Course: Patient was admitted and given IV antibiotics and fluids. She was taken to the operating room and underwent a laparoscopic cholecystectomy. She was found to have a rather sick appearing gallbladder. Postoperatively she tolerated p.o. and felt much better than preoperatively. She was discharged to follow-up in the office. Exam Vital Signs (past 8 hours): Oxygen Delivery Method Room Air Oxygen Flow Rate 0 Narrative Exam Narrative: Walking without difficulty up in about. Alert. Dressings dry and intact. No obvious cellulitis. Abdomen is soft. Objective Labs Result Diagrams: 02/24/21 06:25 02/24/21 06:25 [facility] Medical History Asthma Blindness (~2017) Carotid arteriovenous fistula Chickenpox Chronic back pain Chronic cough Depression Fibroids (~2001) Fractures Gall stones (~2018) HTN (hypertension) (~2003) Hyperlipidemia Measles MRSA carrier Mumps Osteoarthritis Osteopenia Rubella UTI (urinary tract infection) Surgical History H/O bilateral breast reduction surgery H/O bilateral hip replacements History of bilateral knee replacement History of replacement of both shoulder joints Family History Father Hyperlipidemia Hypertension Stroke Mother Cancer Diabetes mellitus Hyperlipidemia Hypertension Depression Heart disease Brother No problems noted. Brother No problems noted. Sister Hypertension Sister Diabetes mellitus Cancer Sister No problems noted. Sister Cancer Sister No problems noted. Sister No problems noted. Sister No problems noted. Social History household members: family Smoking Status: Never smoker alcohol intake: current substance use type: does not use Discharge Plan Discharge Plan Patient Disposition: Home Provider Discharge Comment: You had a very inflamed gallbladder. If you become constipated at home use a laxative like milk of magnesia. I have sent a note to Dr. Ibarra to have him schedule an appointment with you regarding your elevated sugars. I suspect that he will retest you before starting anything to make sure that the elevation that I saw was not just due to your gallbladder. Obviously, I leave that to his discretion. If you are not heard from his office in a day or 2 give them a call to make an appointment. Discharge orders & Medications Prescriptions: New oxycodone 5 mg tablet 5 mg PO Q4H PRN (Reason: painful procedure) Qty: 10 RF: 0 Continued albuterol sulfate 90 mcg/actuation HFA aerosol inhaler 1 puff INHALATION Q4-6H PRN (Reason: shortness of breath or wheezing) Qty: 18 RF: 11 naproxen 500 mg tablet 500 mg PO BID Qty: 180 RF: 3 losartan 50 mg tablet 50 mg PO DAILY Qty: 90 RF: 2 hydrochlorothiazide 12.5 mg tablet 12.5 mg PO DAILY Qty: 90 RF: 2 fluticasone propion-salmeterol 250-50 mcg/dose blister with device 1 inh inhalation BID Qty: 60 RF: 11 zolpidem 5 mg tablet 5 mg PO BEDTIME PRN (Reason: insomnia) Qty: 10 RF: 5 duloxetine [Cymbalta] 30 mg capsule,delayed release(DR/EC) 30 mg PO DAILY Qty: 90 RF: 3 PreserVision AREDS-2 [id number] [id number]-mg Capsule 1 tab PO DAILY RF: 0 fluticasone propionate 50 mcg/actuation [place],Suspension 1 spray INTRANASAL DAILY PRN (Reason: Nasal Congestion) RF: 0 Follow up/Referrals: Ben Ibarra MD [Primary Care Provider] - Javy Gurrola MD [Physician] - (Please call my office and make an appointment to see me in 1-2 weeks. If you need to reach a doctor please call our office. If it is after hours listen to the message and you will be instructed how to page the doctor on-call for our practice. Have a pen and paper ready to write the 1 800 number down.) Diet/Activity/Treatments Diet: Diet as Tolerated Activity: Avoid lifting over 10 lb or straining for the next 4 weeks. You may walk. Skin/Wound/Dressing Care Report to your healthcare provider any signs of infection, such as:: chills, fever, increased pain, unusual drainage and unusual redness Dressing: You may remove the Band-Aids tomorrow and shower. Leave the tape under the Band-Aids fall off on its own. Visit Report/Discharge Packet Instructions: DI for Prescription Opioid Use, DI for Laparoscopic Cholecystec Ryan roberts Surgeons: Wound Care Stand Alone Forms: Surgery Discharge Discharge Data Primary Care Provider: Ben Ibarra Attending Provider: Javy Gurrola
== END 2021-02-24 13:05 | disposition home or self-care (01) ==
LOC: ED 10:38 → AC 11:54
PROVIDERS: Admitting Provider Specialist; Emergency Provider Emergency Medicine; PCP Student in an Organized Health Care Education/Training Program; Referring Provider Emergency Medicine; Visit Provider Specialist
PROC: 0FT44ZZ Resection of Gallbladder, Percutaneous Endoscopic Approach (ICD-10-PCS; CPT 47562; principal; 2021-02-23 17:00)
DX: K80.12 Calculus of gallbladder with acute and chronic cholecystitis without obstruction (principal); E66.01 Morbid (severe) obesity due to excess calories; I10 Essential (primary) hypertension; J45.909 Unspecified asthma, uncomplicated; Z68.41 Body mass index [BMI] 40.0-44.9, adult; Z20.822 Contact with and (suspected) exposure to COVID-19
CPT/HCPCS: 47562; 36415; 76705; 80053; 81003; 81015; 82962; 83036; 83690; 83735; 85025; 87077; 87086; 87186; 87635; 93005; 93010; 96361; 96372; 96374; 96375; 96376; 99220; 99284; C9803; G0378; J0690; J0780; J1650; J1885; J2405; J7613

== ENCOUNTER → 2021-11-23 13:47 | Outpatient (CLI) | payer MEDICARE, OTHER, SELFPAY ==
[2021-02-25 14:23] VITALS: BMI 43.9
--- NOTE | 2021-11-23 | DI.US.S_ITS ---
PROCEDURE: US RENAL COMPLETE INDICATIONS: POLYURIA TECHNIQUE: Real-time scanning was performed of the kidneys and bladder, with image documentation. COMPARISON: None. FINDINGS: Kidneys: Kidneys are normal in size. Right kidney measures 12 cm long; left kidney measures 11 cm long. Right renal cortical thickness is 2.0 cm; left renal cortical thickness is 2.0 cm. Renal cortical echotexture is normal. No hydronephrosis or nephrolithiasis. No suspicious solid mass lesions. Bladder: Pre-void bladder volume is 243 mL. Post-void residual is 1 L4 mL. Pre-void images demonstrate no intraluminal masses or stones. On pre-void images, bilateral ureteral jets are noted with color Doppler interrogation. (Of note, ureteral jets may not be detectable in up to 25% of cases due to insufficient differences in specific gravity between ureteral and bladder urine). Miscellaneous: No free pelvic fluid. IMPRESSION: Mild postvoid residual. Dictated by: Maribel Chiu M.D. on 11/23/2021 at 16:41 Approved by: Maribel Chiu M.D. on 11/23/2021 at 16:44
== END ==
PROVIDERS: PCP Student in an Organized Health Care Education/Training Program; Referring Provider Student in an Organized Health Care Education/Training Program; Visit Provider Student in an Organized Health Care Education/Training Program
DX: R35.89 Other polyuria (principal)
CPT/HCPCS: 76770